=== PATIENT | female | born 1940 | race Caucasian/White ===

== ENCOUNTER 2021-09-24 01:26 | Inpatient (IN) ==
[2021-09-24] MEDS ORDERED: Aspirin 81 MG TAB.CHEW PO ONE (01:40)
[2021-09-24] MEDS ORDERED: Iopamidol - 370 500 ML MLS IVP ONE (01:41)
[2021-09-24 02:20] LABS: Basophils % 0.4 %; Eosinophils # 0.1 K/mcL (0.0-0.6); Eosinophils % 0.6 %; Hematocrit 44.2 % (35.3-44.9); Hemoglobin 14.5 g/dL (11.5-15.4); Immature Granulocytes % 0.3 % (0-4); Lymphocytes # 0.7 K/mcL (0.6-4.6); Lymphocytes % 6.9 %; Mean Corpuscular HGB Conc 32.8 g/dL (31.6-35.5); Mean Corpuscular Hemoglobin 30.5 pg (28.0-33.3); Mean Corpuscular Volume 93.1 fL (83.0-100.0); Mean Platelet Volume 10.7 fL (9.4-12.4); Monocytes # 0.8 K/mcL (0.0-1.3); Monocytes % 8.7 %; Neutrophils # 7.9 K/mcL (1.6-8.9); Platelet Count 213 K/mcL (140-400); Red Blood Count 4.75 M/mcL (3.82-4.97); Red Cell Distribution Width 12.1 % (11.5-14.5); Segmented Neutrophils % 83.1 %; White Blood Count 9.5 K/mcL (4.3-11.1)
[2021-09-24 02:25] LABS: Prothrombin Time 11.4 Seconds (9.4-12.1)
[2021-09-24 02:27] LABS: Activated Partial Thrombo Time 21.9 Seconds (26.0-36.0)
[2021-09-24 02:46] LABS: Alanine Aminotransferase 10 Units/L (7-52); Albumin 3.7 g/dL (3.5-5.7); Alkaline Phosphatase 100 Units/L (34-104); Aspartate Amino Transferase 18 Units/L (13-39); BUN/Creatinine Ratio 18 (6-26); Bilirubin,Direct 0.3 mg/dL (0.0-0.2); Bilirubin,Indirect 1.2 mg/dL (0.0-1.0); Bilirubin,Total 1.5 mg/dL (0.3-1.0); Blood Urea Nitrogen 19 mg/dL (8-23); Calcium 9.6 mg/dL (8.6-10.3); Carbon Dioxide 26 mEq/L (23-29); Chloride 101 mEq/L (98-107); Globulin 3.6 g/dL (2.4-3.5); Glucose 114 mg/dL (70-105); Lipase 19 Units/L (11-82); Osmolality,Calculated 291 (280-300); Potassium 3.5 mEq/L (3.5-5.1); Sodium 139 mEq/L (136-145); Total Protein 7.3 g/dL (6.4-8.9); Troponin I < 0.03 ng/mL (< 0.04); eGFR For African Americans 60 (> 60); eGFR For Non-African Americans 49 (> 60)
[2021-09-24] MEDS ORDERED: Ketorolac 30 MG/ML VIAL IVP ONE (05:13)
[2021-09-24] MEDS ORDERED: Melatonin 3 MG TABLET PO PRN (06:23)
[2021-09-24] MEDS ORDERED: Ondansetron ODT 4 MG TAB.RAPDIS SL PRN (06:23)
[2021-09-24] MEDS ORDERED: Naloxone 0.4 MG/ML INJ IVP PRN (06:23)
[2021-09-24] MEDS ORDERED: Ampicillin/Sulbactam 3,000 MG in 0.9 % Sodium Chloride Mini Bag 100 ML IVPB SCH (06:25)
[2021-09-24] MEDS ORDERED: Morphine Sulfate 2 MG/ML SYRINGE IVP PRN ×2 (06:55)
[2021-09-24] MEDS: Piperacillin/Tazobactam 3.375 GM in 0.9 % Sodium Chloride Mini Bag 100 ML IVPB SCH ×3 (08:55→16:34)
[2021-09-24] MEDS ORDERED: Lidocaine HCL 4 ML Topical Solution (Laryng-O-Jet Kit Sterile Pak) TP ONE (10:34)
[2021-09-24] MEDS ORDERED: *HR* Propofol 200 MG/20 ML VIAL IVP ONE (11:27)
[2021-09-24] MEDS ORDERED: Ondansetron 4 MG/2 ML VIAL ONE (11:27)
[2021-09-24] MEDS ORDERED: Lidocaine -MPF 2% 2 ML VIAL ONE (11:27)
[2021-09-24] MEDS ORDERED: *HR* FentaNYL (PF) 100 MCG/2 ML VIAL ONE (11:27)
[2021-09-24] MEDS ORDERED: Racepinephrine Neb 0.5 ML VIAL IH PRN (11:48)
[2021-09-24] MEDS ORDERED: Albuterol 2.5 MG/3 ML NEBULIZER IH PRN (11:48)
[2021-09-24] MEDS ORDERED: *HR* Meperidine 25 MG/ML SYRINGE IVP PRN (11:48)
[2021-09-24] MEDS ORDERED: *HR* OxyCODONE Immed Rel 5 MG TABLET PO PRN (11:48)
[2021-09-24] MEDS ORDERED: *HR* HYDROmorphone PF 0.5 MG/0.5 ML SYRINGE IVP PRN (11:48)
[2021-09-24] MEDS ORDERED: flumazeniL 0.5 MG/5 ML VIAL IVP PRN (11:48)
[2021-09-24] MEDS ORDERED: Ondansetron 4 MG/2 ML VIAL IVP PRN (11:48)
[2021-09-24] MEDS ORDERED: *HR* Labetalol 20 MG/4 ML SYRINGE IVP PRN (11:48)
[2021-09-24] MEDS ORDERED: Ketorolac 30 MG/ML VIAL IVP PRN (11:48)
[2021-09-24] MEDS ORDERED: Ipratropium Neb 0.5 MG NEBULIZER IH PRN (11:48)
[2021-09-24] MEDS ORDERED: Lidocaine -MPF 4% 5 ML AMPUL ONE ×2 (12:31→12:33)
[2021-09-24] MEDS ORDERED: Lidocaine 5% OINT 35 APPL/35.44 GM TUBE TP ONE (12:32)
[2021-09-24] MEDS ORDERED: Dexmedetomidine HCl 400 MCG/100 ML MLS IVC ONE (12:37)
[2021-09-24] MEDS ORDERED: *HR* Midazolam HCl 2 MG/2 ML VIAL ONE (12:38)
[2021-09-24] MEDS ORDERED: Famotidine 20 MG/2 ML VIAL IVP ONE (12:40)
[2021-09-24] MEDS ORDERED: Ondansetron 4 MG/2 ML VIAL IVP ONE (12:43)
[2021-09-24] MEDS ORDERED: Lidocaine/EPI 1:100k 1% 50 ML VIAL ONE (12:56)
[2021-09-24] MEDS ORDERED: *HR* OxyCODONE Immed Rel 5 MG TABLET PO ONE (21:37)
[2021-09-24] MEDS: 0.9 % Sodium Chloride 1,000 ML IVC SCH (23:33)
[2021-09-25] MEDS: Piperacillin/Tazobactam 3.375 GM in 0.9 % Sodium Chloride Mini Bag 100 ML IVPB SCH ×3 (00:05→17:48)
[2021-09-25 03:27] LABS: Immature Granulocytes % 0.4 % (0-4); Monocytes % 10.2 %
[2021-09-25 03:29] LABS: Basophils % 0.7 %; Eosinophils # 0.4 K/mcL (0.0-0.6); Eosinophils % 6.4 %; Hematocrit 38.4 % (35.3-44.9); Hemoglobin 12.6 g/dL (11.5-15.4); Immature Platelets 8.6 % (1.1-6.1); Lymphocytes # 0.9 K/mcL (0.6-4.6); Lymphocytes % 15.7 %; Mean Corpuscular HGB Conc 32.8 g/dL (31.6-35.5); Mean Corpuscular Hemoglobin 30.7 pg (28.0-33.3); Mean Corpuscular Volume 93.7 fL (83.0-100.0); Mean Platelet Volume 11.8 fL (9.4-12.4); Monocytes # 0.6 K/mcL (0.0-1.3); Neutrophils # 3.7 K/mcL (1.6-8.9); Platelet Count 206 K/mcL (140-400); Red Cell Distribution Width 12.4 % (11.5-14.5); Segmented Neutrophils % 66.6 %; White Blood Count 5.6 K/mcL (4.3-11.1)
[2021-09-25 03:42] LABS: Albumin 3.5 g/dL (3.5-5.7); Albumin/Globulin Ratio 1.2 (1.1-2.2); Bilirubin,Total 1.1 mg/dL (0.3-1.0); Calcium 8.9 mg/dL (8.6-10.3); Magnesium 1.9 mg/dL (1.6-2.6); Phosphorous 3.8 mg/dL (2.7-4.5); Potassium 3.6 mEq/L (3.5-5.1); Total Protein 6.5 g/dL (6.4-8.9)
[2021-09-25] MEDS: hydroCHLOROthiazide 25 MG TABLET PO SCH (07:39)
[2021-09-25] MEDS ORDERED: *HR* OxyCODONE Immed Rel 5 MG TABLET PO PRN (12:23)
[2021-09-25] MEDS: *HR* Heparin 5,000 UNIT/ML VIAL SQ SCH (17:48)
[2021-09-26] MEDS: Piperacillin/Tazobactam 3.375 GM in 0.9 % Sodium Chloride Mini Bag 100 ML IVPB SCH ×3 (00:21→16:59)
[2021-09-26] MEDS: 0.9 % Sodium Chloride 1,000 ML IVC SCH ×3 (04:43→18:00)
[2021-09-26] MEDS: *HR* Heparin 5,000 UNIT/ML VIAL SQ SCH ×2 (06:37→17:00)
[2021-09-26] MEDS ORDERED: Iopamidol - 370 500 ML MLS IVP ONE (08:16)
[2021-09-26] MEDS: hydroCHLOROthiazide 25 MG TABLET PO SCH (09:43)
[2021-09-27] MEDS: Piperacillin/Tazobactam 3.375 GM in 0.9 % Sodium Chloride Mini Bag 100 ML IVPB SCH ×2 (00:41→08:41)
[2021-09-27] MEDS: 0.9 % Sodium Chloride 1,000 ML IVC SCH (06:29)
[2021-09-27] MEDS: *HR* Heparin 5,000 UNIT/ML VIAL SQ SCH (06:29)
[2021-09-27 07:26] VITALS: BP 111/74; PULSE 71; TEMP 98.2; O2SAT 97
[2021-09-27] MEDS: hydroCHLOROthiazide 25 MG TABLET PO SCH (08:41)
== END 2021-09-27 14:43 | disposition home or self-care (01) | DRG 137 ==
LOC: EMEROOARM 01:26 → 3BNU 01:26 → SUATTDRO 06:36 → OBSVTOIN 06:36 → 3BNU 08:34
PROVIDERS: ADMIT Internal Medicine; ATTEND Internal Medicine